=== PATIENT | male | born 1970 | race African-American/Black ===

== ENCOUNTER 2018-03-13 21:09 | Emergency (ER) | payer OTHER ==
[~2018-03-13] VITALS: Ht 165.1 cm; Wt 61.4 kg
[2018-03-13 22:09] VITALS: BP 180/60
[2018-03-13] MEDS ORDERED: IBUPROFEN 800 MG TABLET PO ONE (22:15)
== END 2018-03-13 22:50 | disposition home or self-care (01) ==
LOC: EMS 21:11
DX: M25.572 Pain in left ankle and joints of left foot (principal); I10 Essential (primary) hypertension; F17.210 Nicotine dependence, cigarettes, uncomplicated; F12.90 Cannabis use, unspecified, uncomplicated; F15.90 Other stimulant use, unspecified, uncomplicated; F14.90 Cocaine use, unspecified, uncomplicated; Z86.73 Personal history of transient ischemic attack (TIA), and cerebral infarction without residual deficits; Z59.0 Homelessness
CPT/HCPCS: 29515; 99406

== ENCOUNTER 2021-06-24 19:34 | Emergency (ER) | payer OTHER ==
[~2021-06-24] VITALS: Ht 165.1 cm; Wt 63.6 kg
[2021-06-24 19:55] VITALS: BP 169/110
[2021-06-24] MEDS ORDERED: NITROGLYCERIN 2% (1 GM=INCH) PACKET TP ONE (20:00)
[2021-06-24] MEDS ORDERED: ASPIRIN 81 MG CHEWABLE TABLET PO ONE (20:00)
[2021-06-24 20:07] LABS: BASOPHILS % (AUTO) 0.4 % (0.0-2.0); EOSINOPHILS % (AUTO) 0.4 % (1.0-6.0); HEMOGLOBIN 14.4 g/dL (13.5-17.5); LYMPHOCYTES % (AUTO) 18.9 % (22.0-44.0); MEAN CORPUSCULAR HEMOGLOBIN 28.4 pg (26.0-34.0); MEAN CORPUSCULAR HGB CONC 33.5 G/dL (31.0-37.0); MEAN CORPUSCULAR VOLUME 85 fL (80-100); MONOCYTES # (AUTO) 0.3 K/uL (0.1-1.0); MONOCYTES % (AUTO) 6.1 % (2.0-9.0); NEUTROPHILS # (AUTO) 4.1 K/uL (1.8-7.7); NEUTROPHILS % (AUTO) 74.2 % (40.0-70.0); PLATELET COUNT (AUTO) 170 K/uL (150-450); RED BLOOD CELL COUNT(AUTO) 5.07 MIL/uL (4.50-5.90); RED CELL DISTRIBUTION WIDTH 13.6 % (11.5-14.5)
[2021-06-24 20:16] LABS: ANION GAP 9 mmol/L (8-16); CALCIUM, TOTAL 9.4 mg/dL (8.8-10.5); CARBON DIOXIDE 26 mmol/L (22-29); CHLORIDE 105 mmol/L (98-107); CREATININE 1.34 mg/dL (0.60-1.30); GLUCOSE,RANDOM 95 mg/dL (70-110); SODIUM SERUM 140 mmol/L (136-145); UREA NITROGEN, BLOOD 20 mg/dL (7-18)
[2021-06-24 20:17] LABS: GLOMERULAR FILTR. RATE CALC > 60 mL/min (>60)
[2021-06-24] MEDS ORDERED: AMLO-258 PO (20:29)
== END 2021-06-24 20:44 | disposition home or self-care (01) ==
LOC: EMS 19:35
DX: I10 Essential (primary) hypertension (principal); F14.90 Cocaine use, unspecified, uncomplicated; F17.210 Nicotine dependence, cigarettes, uncomplicated; F12.90 Cannabis use, unspecified, uncomplicated; F19.90 Other psychoactive substance use, unspecified, uncomplicated; Z86.73 Personal history of transient ischemic attack (TIA), and cerebral infarction without residual deficits
CPT/HCPCS: 71045; 80048; 84484; 85025; 93005; 99285; 36415-L1; 36415-TC

== ENCOUNTER 2022-03-25 13:36 | Emergency (ER) | payer OTHER ==
[~2022-03-25] VITALS: Ht 165.1 cm; Wt 63.6 kg
[~2022-03-25 13:36] MED LIST: AMLO-258 PO
[2022-03-25] MEDS ORDERED: ACETAMINOPHEN 500 MG TABLET PO ONE (14:15)
[2022-03-25 14:35] LABS: COVID AG,FIA SOURCE NASOPHARYNGEAL
[2022-03-25 14:52] LABS: BASOPHILS % (AUTO) 0.4 % (0.0-2.0); EOSINOPHILS % (AUTO) 1.7 % (1.0-6.0); HEMATOCRIT 45.5 % (41-53); HEMOGLOBIN 14.6 g/dL (13.5-17.5); LYMPHOCYTES # (AUTO) 1.2 K/uL (1.0-4.8); LYMPHOCYTES % (AUTO) 20.1 % (22.0-44.0); MEAN CORPUSCULAR HEMOGLOBIN 27.9 pg (26.0-34.0); MEAN CORPUSCULAR VOLUME 87 fL (80-100); MONOCYTES # (AUTO) 0.5 K/uL (0.1-1.0); MONOCYTES % (AUTO) 8.7 % (2.0-9.0); NEUTROPHILS # (AUTO) 4.1 K/uL (1.8-7.7); NEUTROPHILS % (AUTO) 69.1 % (40.0-70.0); PLATELET COUNT (AUTO) 192 K/uL (150-450); RED BLOOD CELL COUNT(AUTO) 5.22 MIL/uL (4.50-5.90); RED CELL DISTRIBUTION WIDTH 13.6 % (11.5-14.5)
[2022-03-25 15:03] LABS: ANION GAP 9 mmol/L (8-16); CALCIUM, TOTAL 9.1 mg/dL (8.8-10.5); CARBON DIOXIDE 27 mmol/L (22-29); CHLORIDE 105 mmol/L (98-107); CREATININE 1.14 mg/dL (0.60-1.30); GLUCOSE,RANDOM 97 mg/dL (70-110); POTASSIUM 4.6 mmol/L (3.5-5.1); SODIUM SERUM 141 mmol/L (136-145); UREA NITROGEN, BLOOD 18 mg/dL (7-18)
[2022-03-25 15:04] LABS: GLOMERULAR FILTR. RATE CALC > 60 mL/min (>60)
[2022-03-25 15:09] LABS: ALANINE AMINOTRANSFERASE 28 U/L (12-78); ALBUMIN 3.6 g/dL (3.4-5.0); ALKALINE PHOSPHATASE 60 U/L (46-116); ASPARTATE AMINOTRANSFERASE 19 U/L (15-37); BILIRUBIN,TOTAL 0.5 mg/dL (0.1-1.0); TOTAL PROTEIN, SERUM 8.3 g/dL (6.4-8.2)
[2022-03-25 15:30] LABS: INFLUENZA TYPE A NEGATIVE FOR TYPE A (NEGATIVE); INFLUENZA TYPE B NEGATIVE FOR TYPE B (NEGATIVE)
[2022-03-25 17:17] VITALS: BP 183/116
[2022-03-25] MEDS ORDERED: GUAIFDM PO (17:20)
[2022-03-25] MEDS ORDERED: AMLO-258 PO (17:20)
[2022-03-25] MEDS ORDERED: ACET-66 PO (17:20)
[2022-03-25] MEDS ORDERED: ONDA-104 PO (17:20)
[2022-03-25] MEDS ORDERED: AmLODIPine BESYLATE 10 MG TABLET PO ONE (17:30)
== END 2022-03-25 17:35 | disposition home or self-care (01) ==
LOC: EMS 13:44
DX: J06.9 Acute upper respiratory infection, unspecified (principal); I10 Essential (primary) hypertension; I63.9 Cerebral infarction, unspecified; F17.210 Nicotine dependence, cigarettes, uncomplicated; F12.90 Cannabis use, unspecified, uncomplicated; F15.90 Other stimulant use, unspecified, uncomplicated; F14.90 Cocaine use, unspecified, uncomplicated; Z90.89 Acquired absence of other organs; Z20.822 Contact with and (suspected) exposure to COVID-19
CPT/HCPCS: 99284; 87426; 80053; 84484; 85025; 87804; 36415; 93005; G0480